=== PATIENT | male | born 1990 | race American Indian/Alaskan Native ===

== ENCOUNTER 2019-05-02 19:55 | Emergency (ER) | payer SELFPAY ==
--- NOTE | 2019-05-02 20:48 | Emergency Department Report ---
Blank Doc - Documentation Documentation: This is a 29-year-old male that presents with right knee pain. This initial assessment/diagnostic orders/clinical plan/treatment(s) is/are subject to change based on patient's health status, clinical progression and re- assessment by fellow clinical providers in the ED. Further treatment and workup at subsequent clinical providers discretion. Patient/guardians urged not to elope from the ED as their condition may be serious if not clinically assessed and managed. Initial orders include: 1- Patient sent to [facility] for further evaluation and treatment 2- xray
[2019-05-03] MEDS ORDERED: PERCOCET 5/325 PO ONE (00:12)
[2019-05-03] MEDS ORDERED: IBUPROFEN PO ONE ×2 (00:12→00:37)
[2019-05-03] MEDS ORDERED: ZOFRAN ODT PO ONE (00:12)
[2019-05-03] MEDS ORDERED: ZOFRAN ODT ONE (00:37)
[2019-05-03] MEDS ORDERED: PERCOCET 5/325 ONE (00:37)
--- NOTE | 2019-05-03 01:30 | Emergency Department Report ---
ED Lower Extremity HPI - General Chief Complaint: Extremity Injury, Lower Stated Complaint: RT KNEE PAIN Time Seen by Provider: 05/02/19 20:47 Source: patient Mode of arrival: Wheelchair Limitations: No Limitations - History of Present Illness Initial Comments: Patient is a 29-year-old AA male with no past medical history presents to the ED with acute onset persistent severe right knee pain after he accidentally twisted his right knee while playing basketball 2 days ago. Patient states that the pain and the swelling has worsened in the last 12 hours. Patient stated that he is unable to bear weight on the right leg because of severe right knee pain. Patient denies fall, head or neck injury, but the pain, hip pain, numbness and tingling of lower extremity as bilaterally, dizziness, hematuria, chest pain or dyspnea MD Complaint: knee injury (right) -: Sudden, days(s) (2) Injury: Knee: Left (pain, swelling) Type of Injury: inversion, eversion, hyperflexion Place: home Severity: severe Severity scale (0 -10): 7 Improves With: nothing Worsens With: weight bearing, movement, palpation Context: other (twisted right knee when playing basketball) Associated Symptoms: snap/pop sensation, swelling, able to partially bear weight. denies: numbness, tingling - Related Data Previous Rx's Medication Instructions Recorded Last Taken Type Acetaminophen/Codeine [Tylenol 1 tab PO Q6H PRN #15 tab 05/03/19 Unknown Rx /Codeine # 3 tab] Cyclobenzaprine [Flexeril] 10 mg PO Q8H PRN #21 tablet 05/03/19 Unknown Rx Ibuprofen [Motrin] 800 mg PO Q8HR PRN #24 tablet 05/03/19 Unknown Rx Allergies Allergy/AdvReac Type Severity Reaction Status Date / Time No Known Allergies Allergy Unverified 05/02/19 20:12 ED Review of Systems ROS: Stated complaint: RT KNEE PAIN Other details as noted in HPI Constitutional: denies: chills, fever Eyes: denies: eye pain, eye discharge, vision change ENT: denies: ear pain, throat pain Respiratory: denies: cough, shortness of breath, wheezing Cardiovascular: denies: chest pain, palpitations Endocrine: no symptoms reported. denies: see HPI, excessive sweating, increased thirst, increased urine, unexplained weight gain Gastrointestinal: denies: abdominal pain, nausea, diarrhea Genitourinary: denies: urgency, dysuria Musculoskeletal: joint swelling (right knee), arthralgia (RIGHT KNEE), myalgia. denies: back pain Skin: denies: rash, lesions Neurological: denies: headache, weakness, paresthesias Psychiatric: denies: anxiety, depression Hematological/Lymphatic: denies: easy bleeding, easy bruising ED Past Medical Hx - Past Medical History Previous Medical History?: No - Surgical History Past Surgical History?: No - Social History Smoking Status: Former Smoker - Medications Home Medications: Home Medications Medication Instructions Recorded Confirmed Last Taken Type Acetaminophen/Codeine [Tylenol 1 tab PO Q6H PRN #15 tab 05/03/19 Unknown Rx /Codeine # 3 tab] Cyclobenzaprine [Flexeril] 10 mg PO Q8H PRN #21 tablet 05/03/19 Unknown Rx Ibuprofen [Motrin] 800 mg PO Q8HR PRN #24 tablet 05/03/19 Unknown Rx ED Physical Exam - General Limitations: No Limitations General appearance: alert, in no apparent distress - Head Head exam: Present: atraumatic, normocephalic, normal inspection - Eye Eye exam: Present: normal appearance, PERRL, EOMI Pupils: Present: normal accommodation - ENT ENT exam: Present: normal exam, normal orophraynx, mucous membranes moist, TM's normal bilaterally, normal external ear exam - Neck Neck exam: Present: normal inspection, full ROM. Absent: tenderness, lym phadenopathy - Respiratory Respiratory exam: Present: normal lung sounds bilaterally. Absent: respiratory distress, wheezes, rales, rhonchi, chest wall tenderness, prolonged expiratory - Cardiovascular Cardiovascular Exam: Present: regular rate, normal rhythm. Absent: systolic murmur, diastolic murmur, rubs, gallop - GI/Abdominal GI/Abdominal exam: Present: soft, normal bowel sounds. Absent: distended, tenderness, guarding, hyperactive bowel sounds - Rectal Rectal exam: Present: deferred - Extremities Exam Extremities exam: Present: normal inspection, tenderness (right knee), normal capillary refill, joint swelling (right knee). Absent: full ROM (limited due to pain), calf tenderness - Back Exam Back exam: Present: normal inspection, full ROM. Absent: tenderness, CVA tenderness (L), muscle spasm, paraspinal tenderness, vertebral tenderness - Neurological Exam Neurological exam: Present: alert, oriented X3, CN II-XII intact, abnormal gait (due to pain on right knee), reflexes normal - Psychiatric Psychiatric exam: Present: normal affect, normal mood - Skin Skin exam: Present: warm, dry, intact, normal color. Absent: rash ED Course Vital Signs 05/02/19 05/03/19 20:49 02:03 Temperature 100.3 F H 98.4 F Pulse Rate 18 L 85 Respiratory 18 16 Rate Blood Pressure 154/89 Blood Pressure 131/86 [Right] O2 Sat by Pulse 98 99 Oximetry - Reevaluation(s) Reevaluation #1: 05/03/19 01:34 This case 29-year-old male who presented to the ED with severe right knee pain and swelling after twisting the right knee 2 days ago while playing basketball. In the ED, patient is alert and oriented 3 and is not in distress but pain, and shows low-grade fever. Patient was treated for pain in the ED and right knee x-ray shows a small suprapatellar effusion. Otherwise there is no acute or serious abnormality or significant degenerative joint disease. Patient's right knee was splinted as up on the patient was already having crutches was discharged home with pain medications and referred to the orthopedic surgeon on- call Dr. Mccabe for follow up. Patient was advised to return to the ED immediately if symptoms get worse. ED Lower Extremity MDM - Radiology Data Radiology results: report reviewed, image reviewed The right knee x-ray shows a small suprapatellar effusion. Otherwise there is no acute or serious abnormality or significant degenerative joint disease. - Medical Decision Making This case 29-year-old male who presented to the ED with severe right knee pain and swelling after twisting the right knee 2 days ago while playing basketball. In the ED, patient is alert and oriented 3 and is not in distress but pain, and shows low-grade fever. Patient was treated for pain in the ED and right knee x-ray shows a small suprapatellar effusion. Otherwise there is no acute or serious abnormality or significant degenerative joint disease. Patient's right knee was splinted as up on the patient was already having crutches was discharged home with pain medications and referred to the orthopedic surgeon on- call Dr. Mccabe for follow up. Patient was advised to return to the ED immediately if symptoms get worse. - Differential Diagnosis right knee fracture; Degenerative joint disease; Right knee sprain Critical care attestation.: If time is entered above; I have spent that time in minutes in the direct care of this critically ill patient, excluding procedure time. ED Disposition Clinical Impression: Sprain of right knee Qualifiers: Encounter type: initial encounter Involved ligament of knee: unspecified ligament Qualified Code(s): S83.91XA - Sprain of unspecified site of right knee, initial encounter Contusion of right knee and lower leg Qualifiers: Encounter type: initial encounter Qualified Code(s): S80.01XA - Contusion of right knee, initial encounter Disposition: TO HOME OR SELFCARE Is pt being admited?: No Does the pt Need Aspirin: No Condition: Stable Instructions: Knee Sprain (ED), Leg Sprain (ED) Additional Instructions: Take medications with food, drink plenty of fluids and follow-up with Dr. Mccabe, the orthopedic surgeon in 3-5 days for reevaluation. Return to the ed immediately if symptoms get worse. Prescriptions: Cyclobenzaprine [Flexeril] 10 mg PO Q8H PRN #21 tablet PRN Reason: Muscle Spasm Ibuprofen [Motrin] 800 mg PO Q8HR PRN #24 tablet PRN Reason: Pain , Severe (7-10) Acetaminophen/Codeine [Tylenol /Codeine # 3 tab] 1 tab PO Q6H PRN #15 tab PRN Reason: Pain , Severe (7-10) Referrals: SANIA MCCABE MD [Staff Physician] - 3-5 Days Forms: Accompanied Note, Work/School Release Form(ED) Time of Disposition: : Print Language: AUSTRIAN
[2019-05-03 02:06] VITALS: BP 131/86
--- NOTE | 2019-05-03 10:05 | XRay Report ---
Right knee-3 views INDICATION: knee pain. COMPARISON: None. IMPRESSION: Small suprapatellar effusion. No acute osseous abnormality. No significant DJD. Signer Name: Rishabh Nichole MD Signed: 05/02/2019 10:31 PM Workstation Name: [id number]
== END 2019-05-03 02:03 | disposition home or self-care (01) ==
LOC: ED 19:55
DX: S83.91XA Sprain of unspecified site of right knee, initial encounter (principal); Z87.891 Personal history of nicotine dependence; Z79.899 Other long term (current) drug therapy; W21.05XA Struck by basketball, initial encounter; Y93.67 Activity, basketball; Y92.098 Other place in other non-institutional residence as the place of occurrence of the external cause; Y99.8 Other external cause status
CPT/HCPCS: Q0162